=== PATIENT | female | born 1970 | race Caucasian/White ===

== ENCOUNTER → 2017-06-17 | Outpatient (REF) | payer BC | LOC: M SFHCWAGY 12:04 | PROVIDERS: ATTEND Nurse Practitioner Women's Health | DX: N93.0 Postcoital and contact bleeding (principal) ==

== ENCOUNTER → 2017-06-23 | Outpatient (CLI) | payer BC ==
--- NOTE | 2017-06-23 10:49 | REP ---
Digital diagnostic bilateral mammography with CAD and focused right breast sonography: History: Palpable lump in the right breast at the outer edge of the areola at 9 o'clock position, 4 mm, round and mobile. History of occasional spontaneous milky left nipple discharge. Bilateral breast tenderness. Comparison mammography: December 04, 2010. Findings: Breast parenchyma remains heterogeneously dense in a pattern which inhibits the sensitivity of mammography. A skin marker is affixed to the skin at the site of the palpable lump on the right. This projects in the upper outer quadrant. The breast parenchymal markings are unchanged. No new density, mass, architectural distortion or microcalcification is seen on either side. Magnified focal spot compression CC, MLO and true MLO views of the right breast show no additional abnormality. No suspicious mammographic finding. Sonographic findings: Right breast is scanned from 7 o'clock to 8 o'clock across the area of the palpable lump. There is a 0.3 cm cyst located 3.6 cm from the nipple. Heterogeneous fibroglandular background echotexture is seen. No mass or other suspicious finding. Impression: BIRADS category II benign bilateral breast imaging. 0.3 cm cyst noted in the 8 o'clock position 3.6 cm from the nipple. Clinical follow-up is advised. This negative report should not dissuade one from biopsy of a palpable lump depending on its clinical characteristics. BI-RADS/ACR category 2 mammogram. Benign finding(s). Routine annual screening mammography (for women over age 40). This mammogram was interpreted with the aid of an FDA-approved computer-aided detection system. The patient states she had a clinical breast exam in June 11, 2017 The patient letter being requested is M2 dense. Signed by Francesco Solano MD 06/23/2017 03:04 P
== END ==
LOC: M RAD 09:38
PROVIDERS: ATTEND Nurse Practitioner Women's Health
DX: N60.39 Fibrosclerosis of unspecified breast (principal)
CPT/HCPCS: 76642; G0204

== ENCOUNTER → 2019-01-04 | Outpatient (CLI) | payer BC ==
--- NOTE | 2019-01-04 14:11 | REP ---
Left foot four views : There is no fracture or dislocation. Mineralization and joint spaces are normal. There are no calcifications or foreign bodies. Impression: Negative left foot . Electronically Signed by Haim Delatorre MD 01/04/2019 02:02 P
== END ==
LOC: M WUC 13:02
PROVIDERS: ATTEND Physician Assistant
DX: M79.672 Pain in left foot (principal)

== ENCOUNTER → 2020-05-16 | Outpatient (CLI) | payer BC ==
--- NOTE | 2020-06-05 08:56 | SLEEPHOME ---
[facility] DOWNTIME REPORT DATE: 05/16/2020 ORDERED BY: Jabier Alston MD Diagnostic home sleep testing was performed due to concern for the obstructive sleep apnea syndrome. For testing, a nocturnal T3 respiratory monitoring device was used. Continuous record was made of pulse, oxygen saturation, air flow, chest and abdominal strain, and body position. Nine hours and 59 minutes of data were reviewed. There was 9 hours and 18 minutes marked as time in bed. During the interval marked time in bed, there were 98 respiratory events identified of 10 seconds in duration or greater for a respiratory event index of 10.5. The events were primarily obstructive but 29 central apneas were also seen. The patient's baseline pulse rate was 68 beats per minute. Pulse rate ranged 51-93. Baseline saturation was 95%. Saturations fell to 87%. Testing was performed in both the supine and non-supine positions. IMPRESSION: Abnormal home sleep testing with repetitive respiratory events and oxygen desaturations to 87% with a respiratory event index of 10.5 is consistent with the obstructive sleep apnea syndrome. RECOMMENDATION: The patient should be encouraged to undergo a formal sleep evaluation. /faisal PATRICIO
== END ==
LOC: M SLEEP HO 10:13
PROVIDERS: ATTEND Physician Assistant
DX: G47.9 Sleep disorder, unspecified (principal); R53.83 Other fatigue

== ENCOUNTER → 2020-11-08 | Outpatient (CLI) | payer OTHER ==
[2020-11-08 16:10] LABS: BASO % 0.6 % (0.0-1.0); EOS # 0.1 10^3/uL (0.0-0.5); EOS % 1.8 % (0.0-3.0); HEMATOCRIT 42.5 % (36.0-47.0); HEMOGLOBIN 13.6 g/dl (12.0-15.5); LYMPH # 1.4 10^3/uL (1.5-5.0); LYMPH % 20.9 % (24.0-44.0); MEAN CORPUSCULAR HEMOGLOBIN 28.2 pg (27.0-33.0); MEAN CORPUSCULAR VOLUME 88.2 fl (80.0-96.0); MONO # 0.6 10^3/uL (0.0-0.8); MONO % 8.6 % (2.0-8.0); NEUTROPHILS # 4.6 10^3/uL (1.5-8.5); NEUTROPHILS % 67.7 % (36.0-66.0); PLATELET COUNT, AUTOMATED 285 10^3/uL (150-450); RED BLOOD COUNT 4.82 10^6/uL (4.00-5.40); WHITE BLOOD COUNT 6.8 10^3/uL (4.0-10.0)
[2020-11-08 16:43] LABS: ALBUMIN 3.7 GM/DL (3.2-5.2); ALT/SGPT 19 U/L (12-78); BILIRUBIN,TOTAL 0.3 MG/DL (0.2-1.0); BLOOD UREA NITROGEN 6 MG/DL (7-18); CALCIUM LEVEL 9.2 MG/DL (8.5-10.1); CARBON DIOXIDE LEVEL 29 MEQ/L (21-32); CHLORIDE LEVEL 107 MEQ/L (98-107); CREATININE FOR GFR 0.67 MG/DL (0.55-1.30); GLOMERULAR FILTRATION RATE > 60.0 (>58); GLUCOSE, FASTING 83 MG/DL (70-100); POTASSIUM SERUM 3.7 MEQ/L (3.5-5.1); SODIUM LEVEL 141 MEQ/L (136-145); THYROID STIMULATING HORMONE 0.959 uIU/ML (0.358-3.740); TOTAL PROTEIN 6.9 GM/DL (6.4-8.2)
== END ==
LOC: M WUC 12:57
PROVIDERS: ATTEND Physician Assistant
DX: R53.83 Other fatigue (principal)